=== PATIENT | female | born 1985 | race Caucasian/White ===

== ENCOUNTER 2018-11-08 21:46 | Emergency (ER) | payer OTHER ==
[2018-11-08 21:53] VITALS: BP 143/92; PULSE 63; TEMP 98.2; BMI 28.3
--- NOTE | 2018-11-08 22:23 | PDOC ---
History of Present Illness - General Chief Complaint: Blood/Body Fluid Exposure SJR Stated Complaint: BLOOD EXPOSURE Time Seen by Provider: 11/08/18 22:03 History Source: Patient Exam Limitations: No Limitations - History of Present Illness Initial Comments: 11/08/18 22:18 Patient is employee at [employer] who while attempting to start an IV for patient who is known HIV positive, patient pulled turnicot off which splattered to the right side of her face. Patient denies any mucous membrane exposure, did not Slatter to her eyes or her mouth. Wash her face immediately with antibacterial soap and water. States is up-to-date with tetanus and hepatitis B vaccinations 11/08/18 22:21 Timing/Duration: 1-3 hours Associated Symptoms: reports: denies symptoms. denies: fever/chills Past History - Travel Traveled outside of the country in the last 30 days: No Close contact w/someone who was outside of country & ill: No - Past Medical History Allergies/Adverse Reactions: Allergies Allergy/AdvReac Type Severity Reaction Status Date / Time No Known Allergies Allergy Verified 11/08/18 21:53 Home Medications: Ambulatory Orders No Home Medications 0 dose .ROUTE UTDICT 12/29/13 Ibuprofen [Motrin -] 800 mg PO TID #30 tablet 02/08/14 Progesterone, Micronized [Progesterone] 100 mg PO ASDIR 02/08/14 metFORMIN HCL [Glucophage -] 500 mg PO BID 02/08/14 COPD: No - Surgical History Appendectomy: Yes - Suicide/Smoking/Psychosocial Hx Smoking History: Never smoked Have you smoked in the past 12 months: No Information on smoking cessation initiated: No Hx Alcohol Use: No Drug/Substance Use Hx: No Review of Systems - Review of Systems Able to Perform ROS?: Yes Is the patient limited Mosotho proficient: Yes Constitutional: Yes: Symptoms Reported, See HPI, Malaise. No: Chills, Fever HEENTM: Yes: See HPI. No: Symptoms Reported, Eye Pain, Blurred Vision, Tearing Respiratory: Yes: See HPI. No: Symptoms reported, Cough ABD/GI: Yes: See HPI. No: Symptoms Reported Integumentary: Yes: See HPI. No: Symptoms Reported, Bruising Neurological: Yes: See HPI. No: Symptoms reported All Other Systems: Reviewed and Negative *Physical Exam - Vital Signs Last Vital Signs Temp Pulse Resp BP Pulse Ox 98.2 F 63 18 143/92 100 11/08/18 21:49 11/08/18 21:49 11/08/18 21:49 11/08/18 21:49 11/08/18 21:49 - Physical Exam General Appearance: Yes: Nourished, Appropriately Dressed. No: Apparent Distress HEENT: positive: FAWN, Normal ENT Inspection, Normal Voice, TMs Normal, Pharynx Normal Neck: positive: Supple. negative: Tender Respiratory/Chest: positive: Lungs Clear, Normal Breath Sounds Gastrointestinal/Abdominal: positive: Soft. negative: Tender Extremity: positive: Normal Capillary Refill, Normal Inspection, Normal Range of Motion Integumentary: positive: Normal Color, Dry, Warm Neurologic: positive: plastics technician II-XII NML intact, Fully Oriented, Alert, Normal Mood/ Affect, Normal Response, Motor Strength 5/5 Medical Decision Making - Medical Decision Making 11/08/18 22:22 With lengthy discussion patient understands what true body fluid exposure would include and that would be a splash of blood, [place], breastmilk, saliva to a mucous membrane or open wound of skin, sexual exposure or needlestick injury. Patient understands that as these things occurred is not a true body fluid exposure and acted appropriately like cleaning and is not have hepatitis/HIV testing indicated at this time *DC/Admit/Observation/Transfer Diagnosis at time of Disposition: Patient exposure to body fluids - Discharge Dispostion Disposition: HOME Condition at time of disposition: Stable Decision to Admit order: No - Referrals - Patient Instructions Printed Discharge Instructions: How to Handle Body Fluid Exposure -- Healthcare Worker Additional Instructions: There was no true exposure to mucous membranes by body fluids tonight Continue to keep skin clean, and follow-up as needed - Post Discharge Activity Forms/Work/School Notes: Back to Work
== END 2018-11-08 22:29 | disposition home or self-care (01) ==
LOC: JERFT 21:46
DX: Z77.21 Contact with and (suspected) exposure to potentially hazardous body fluids (principal); Z20.6 Contact with and (suspected) exposure to human immunodeficiency virus [HIV]; X58.XXXA Exposure to other specified factors, initial encounter; Y93.F9 Activity, other caregiving; Y92.89 Other specified places as the place of occurrence of the external cause; Y99.0 Civilian activity done for income or pay
CPT/HCPCS: 99281-25